=== PATIENT | female | born 1990 | race Two or more races ===

== ENCOUNTER 2018-07-27 00:54 | Emergency (ER) | payer SELFPAY ==
[~2018-07-27] VITALS: Ht 165.1 cm; Wt 77.1 kg
[2018-07-27 01:03] VITALS: BP 112/78
[2018-07-27] MEDS ORDERED: ACETAMINOPHEN 500 MG TAB PO ONE (02:30)
[2018-07-27] MEDS ORDERED: SODIUM CHLORIDE 0.9% 1,000 ML IV ONE (02:30)
== END 2018-07-27 03:29 | disposition home or self-care (01) ==
LOC: ER 00:59
DX: O29.43 Spinal and epidural anesthesia induced headache during pregnancy, third trimester (principal); Z3A.35 35 weeks gestation of pregnancy
CPT/HCPCS: 96360

== ENCOUNTER 2018-09-04 18:37 | Inpatient (IN) | payer MEDICAID ==
[~2018-09-04] VITALS: Ht 165.1 cm; Wt 95.3 kg
[2018-09-04 19:42] LABS: Basophils # (auto) 0 uL; Basophils % (auto) 0.2 % (0.0-2.0); Eosinophils # (auto) 0.1 uL; Eosinophils % (auto) 0.3 % (0.0-7.0); Hematocrit 27.9 % (36.0-46.0); Hemoglobin 9.1 g/dL (12.2-16.2); Lymphocytes # (auto) 1.9 uL; Lymphocytes % (auto) 10.2 % (10.0-50.0); Mean Corpuscular Hgb Conc. 32.6 g/dL (32.0-36.0); Monocytes # (auto) 0.8 uL; Monocytes % (auto) 4.1 % (0.0-12.0); Neutrophils # (auto) 15.5 uL; Neutrophils % (auto) 85.2 % (37.0-80.0); Platelet Count (auto) 330 10^3/uL (140-450); Red Blood Cells 3.03 10^6/uL (4.0-5.20); White Blood Cell 18.2 10^3/uL (4.4-10.8)
[2018-09-04 20:11] LABS: Albumin 3.1 g/dL (3.4-5.0); BUN/Creatinine Ratio 18.6; Calcium 7.7 mg/dL (8.5-10.1); Potassium 3.9 mmol/L (3.5-5.1)
[2018-09-04 20:14] LABS: Bilirubin, Total 0.2 mg/dL (0.2-1.0); Total Protein 6.5 g/dL (6.4-8.2)
[2018-09-04 20:18] LABS: INR 1.06 (0.9-1.15); Partial Thromboplastin Time 19.8 sec (23.78-33.04); Prothrombin Time 11.3 sec (9.27-12.13)
[2018-09-04] MEDS ORDERED: ONDANSETRON HCL 4 MG/2 ML VIAL IV ONE (21:30)
[2018-09-04] MEDS ORDERED: MORPHINE SULFATE 4 MG/ML SYR/VIAL IV ONE (21:30)
[2018-09-04] MEDS ORDERED: LACT. RINGERS/OXYTOCIN 20UNITS 1,000 ML IV ONE ×3 (21:51→22:04)
[2018-09-04] MEDS ORDERED: fentaNYL CITRATE 100 MCG/2 ML VL ONE (22:32)
[2018-09-04] MEDS ORDERED: MIDAZOLAM HCL 1MG/1ML-2 ML VIAL ONE (22:33)
[2018-09-04] MEDS ORDERED: CARBOPROST TROMETHAMINE 250 MCG/1ML VIAL IM ONE (22:42)
[2018-09-04 22:43] VITALS: BP 114/67
[2018-09-04] MEDS ORDERED: METHYLERGONOVINE MALEATE 0.2 MG/ML AMP IM ONE (22:43)
[2018-09-04 22:52] VITALS: BP 114/67
[2018-09-04] MEDS ORDERED: ceFAZolin 1GM/50ML 50 ML IV ONE (23:00)
[2018-09-04] MEDS ORDERED: ONDANSETRON HCL 4 MG/2 ML VIAL ONE (23:39)
[2018-09-04] MEDS ORDERED: LACTATED RINGER'S 1,000 ML IV SCH (23:44)
[2018-09-04] MEDS ORDERED: ONDANSETRON HCL 4 MG/2 ML VIAL IV PRN (23:45)
[2018-09-04] MEDS ORDERED: RHO (D) IMMUNE GLOBULIN 300 MCG INJ IM PRN (23:45)
[2018-09-04] MEDS ORDERED: OXYTOCIN 10UNIT/ML 1ML VIAL ONE (23:59)
[2018-09-05] VITALS (10 sets, daily range): BP systolic 91–103; BP diastolic 46–67
[2018-09-05] MEDS ORDERED: METOCLOPRAMIDE HCL 5MG/ml INJ 2ml VIAL IV ONE
[2018-09-05] MEDS ORDERED: HYDROmorphone HCL 2 MG/ML VL IV PRN
--- NOTE | 2018-09-05 00:45 | NUR ---
Received female pt from PACU, transferred to bed, IV to right AC LR with Pit infusing as ordered and placed on pump, pt is alert and answers questions appropriately. skin is cool to touch color is slightly pale. Lungs clear to ausc bilat. heart tones wnl. abd is soft b/s present fundus firm 2 fingers below the umb. Lochia is moderate to heavy. Incision to lower abd is intact félix intact wallace catheter in place with 100 ml's of clear yellow urine noted. 0100 Isabell pads changed. Lochia is heavy, no clots noted Peter RIVAS charge at bedside isabell pads and chux weighed total output 471 ml's fundus remains two fingers below and firm. 01:20 pt is resting quietly offers no c/o at this time. no distress noted will continue to monitor Addendum: 09/05/18 at 0355 by Codi Madrigal RN Correction incision is intact no félix present
--- NOTE | 2018-09-05 01:45 | NUR ---
Pt is resting quietly offers no c/o at this time, lochia is small no clots noted fundus remain firm at 2 below umb. call maldonado within reach will continue to monitor
[2018-09-05] MEDS ORDERED: LACTATED RINGER'S 1,000 ML IV SCH (01:51)
[2018-09-05] MEDS ORDERED: CARBOPROST TROMETHAMINE 250 MCG/1ML VIAL IM PRN (02:00)
--- NOTE | 2018-09-05 02:12 | NUR ---
Entered room to check on pt's status, fundus and bleeding, Pt noted to be cool to the touch and pale, did not arouse easily called for assistance B/P of 51/31 pulse of 41 O2 sat at 100% on room. O2 place via non breather at 10L/M and Code Assist called by Peter, RN and call placed to Dr. Savage by Peter, RN [id number] Code assist team at bedside. IV fluid LR to right AC and and left AC at bolus rate. Pt remains pale and cool to the touch 0220 B/P at 73/53 heart rate of 97 O2 sat at 100% pt is more responsive color improving 0231 First dose of Hemabate IM as ordered given to LT and teresa pads and chux weighed results of 179 cc's 0235 Pt is talkative and answers question appropriately remains on O2 urine output at 250 ml's B/P 90/63 pulse at 95
[2018-09-05 02:18] LABS: Basophils # (auto) 0 uL; Basophils % (auto) 0.1 % (0.0-2.0); Eosinophils # (auto) 0 uL; Hematocrit 22.7 % (36.0-46.0); Hemoglobin 7.3 g/dL (12.2-16.2); Lymphocytes # (auto) 1.3 uL; Lymphocytes % (auto) 6.9 % (10.0-50.0); Mean Corpuscular Hemoglobin 29.6 pg (28.0-32.0); Mean Corpuscular Hgb Conc. 32.2 g/dL (32.0-36.0); Mean Corpuscular Volume 91.9 fL (80.0-100.0); Monocytes # (auto) 1.3 uL; Monocytes % (auto) 7.2 % (0.0-12.0); Neutrophils # (auto) 15.7 uL; Neutrophils % (auto) 85.8 % (37.0-80.0); Platelet Count (auto) 170 10^3/uL (140-450); Red Blood Cells 2.46 10^6/uL (4.0-5.20); Red Cell Distribution Width 14.6 % (11.8-14.3); White Blood Cell 18.3 10^3/uL (4.4-10.8)
--- NOTE | 2018-09-05 02:20 | NUR ---
Called Dr. Savage to inform of code assist. Orders received to give 2u PRBC, 1 FFP, then 2u PRBs, Protonix 40mg IV, Lasix 20mg IV after second unit PRBCs, Hemabate 250mcg IM x3 now (may give 4th dose if needed), Fibrinogen and PT/PTT labs, CBC 2 hours after 2 units transfused, NS with 20u Pitocin at 150ml/hr. Orders placed and followed.
[2018-09-05] MEDS ORDERED: CARBOPROST TROMETHAMINE 250 MCG/1ML VIAL IM ONE ×3 (02:28→03:05)
--- NOTE | 2018-09-05 02:45 | NUR ---
B/P 95/55 with heart rate 92 with O2 sat at 100%, pat remains pale in color but has improved, is talkative and alert will continue to monitor 03:05 O2 discontinued O2 sats remain at 100% V/S B/P 94/57 heart rate of 96 temp 98.0 orally urine output of 75 ml's 03:07 Third dose of Hemabate to LT as ordered 03:20 B/P of 103/67 heart rate of 89 O2 sat at 100% on room air temp of 98.4 orally. fundus remains 2 below umb. 03:38 First unit of RBC infusing as ordered, explained to pt signs and symptoms of possible reaction to transfusion pt verbalizes understanding 03:50 Chux and teresa pads changed and weighed results of 122 ml's and teresa care given fundus remains 2 below the umb. Lochia is decreasing. Vital signs; B/P 96/71 rate of 101 temp of 98.2 04:05 No reaction to transfusion noted pt resting quietly will continue to monitor
[2018-09-05] MEDS ORDERED: LACT. RINGERS/OXYTOCIN 20UNITS 0 ML IV ONE (02:57)
[2018-09-05] MEDS ORDERED: PANTOPRAZOLE 40 MG/10 ML VIAL IV ONE (03:00)
[2018-09-05 03:18] LABS: INR 1.5 (0.9-1.15); Partial Thromboplastin Time 24.6 sec (23.78-33.04); Prothrombin Time 15.7 sec (9.27-12.13)
[2018-09-05] MEDS ORDERED: OXYTOCIN 10UNIT/ML 1ML VIAL ONE (03:18)
[2018-09-05] MEDS: OXYTOCIN 20 UNT in SODIUM CHLORIDE 0.9% 1,000 ML IV SCH ×3 (03:30→17:04)
[2018-09-05 04:02] LABS: Fibrinogen 76.6 mg/dL (177-375)
--- NOTE | 2018-09-05 04:40 | NUR ---
First unit of RBC's infused no reaction noted. Pt resting quietly will continue to monitor 04:59 Second unit of RBC'S infusing as ordered, educated pt on signs and symptoms of possible reaction pt verbalizes understanding.
--- NOTE | 2018-09-05 05:15 | NUR ---
Pt resting quietly no reaction to transfusion noted will continue to monitor
[2018-09-05] MEDS ORDERED: FUROSEMIDE 20 MG/2 ML VIAL IV ONE (06:00)
--- NOTE | 2018-09-05 06:29 | NUR ---
Dr. Savage calls. Updated SBAR given including pts status, EBL trend, 2u PRBC's transfused. Lasix held due to low BP. No new orders received.
--- NOTE | 2018-09-05 06:30 | NUR ---
INITIAL CONTACT PT ALERT AND ORIENTED, RESTING IN BED, EVEN RISE AND FALL OF RESPIRATIONS, MONITORS IN PLACE, SECOND UNIT OF BLOOD COMPLETED, PT TOLERATED WELL. DENIES PAIN, FUNDUS 3 BELOW UMBILICUS AND FIRM, SCANT BLEEDING. BARTLETT CATH CLEAR YELLOW URINE, PT DENIES ANY PAIN, BROTHER IN LAW AT BEDSIDE. CONTINUE CARE.
--- NOTE | 2018-09-05 06:30 | NUR ---
Report given to ROB Sparks at bedside
--- NOTE | 2018-09-05 07:58 | NUR ---
FFP STARTED, MONITORS IN PLACE, CONTINUE CARE
--- NOTE | 2018-09-05 08:14 | NUR ---
FFP TOLERATING WELL, NO DISTRESS NOTED, BROTHER IN LAW AT BEDSIDE, MONITORS IN PLACE, CONTINUE CARE.
[2018-09-05] MEDS ORDERED: cefTRIAXone 1GM/50ML D5W 50 ML IV SCH (09:00)
[2018-09-05] MEDS ORDERED: DIPHENOXYLATE W/ATROPINE 2.5 MG TAB PO PRN (09:00)
--- NOTE | 2018-09-05 09:12 | NUR ---
ACTIVITY PT RESTING IN BED, WATCHING TV, MONITORS IN PLACE, FFP RUNNING, NO DISTRESS NOTED, CONTINUE CARE.
--- NOTE | 2018-09-05 09:16 | NUR ---
ORDERS RECEIVED TO ADVANCE DIET
--- NOTE | 2018-09-05 09:30 | NUR ---
URINE OBTAINED AND SENT TO LAB
[2018-09-05 09:36] LABS: Basophils # (auto) 0 uL; Basophils % (auto) 0.1 % (0.0-2.0); Eosinophils # (auto) 0 uL; Eosinophils % (auto) 0.1 % (0.0-7.0); Hemoglobin 8.2 g/dL (12.2-16.2); Mean Corpuscular Volume 88.8 fL (80.0-100.0)
[2018-09-05 09:39] LABS: Hematocrit 24.4 % (36.0-46.0); Lymphocytes # (auto) 1.7 uL; Lymphocytes % (auto) 13.5 % (10.0-50.0); Mean Corpuscular Hemoglobin 29.8 pg (28.0-32.0); Mean Corpuscular Hgb Conc. 33.6 g/dL (32.0-36.0); Monocytes # (auto) 1.3 uL; Monocytes % (auto) 9.9 % (0.0-12.0); Neutrophils # (auto) 9.8 uL; Neutrophils % (auto) 76.4 % (37.0-80.0); Red Blood Cells 2.75 10^6/uL (4.0-5.20); Red Cell Distribution Width 14.8 % (11.8-14.3); White Blood Cell 12.8 10^3/uL (4.4-10.8)
[2018-09-05 09:43] LABS: Platelet Count (auto) 128 10^3/uL (140-450)
[2018-09-05 09:47] LABS: Urine Bacteria NONE SEEN /hpf (None Seen); Urine Blood TRACE /uL (Negative); Urine Mucus FEW (None Seen); Urine Specific Gravity 1.015 (1.001-1.035); Urine WBC 1 /hpf (0 - 5)
--- NOTE | 2018-09-05 10:00 | NUR ---
PROVIDER UPDATE GIVEN TO DR STRAUSS CBC RESULTS AND URINE ORDERS RECEIVED FOR REGULAR DIET, IRON PO TID, REMOVE BARTLETT AND TO GET PATIENT UP TO WALK.
[2018-09-05] MEDS: ACETAMINOPHEN 325 MG TAB PO PRN ×2 (10:35→15:16)
--- NOTE | 2018-09-05 11:20 | NUR ---
BREAST PUMP PT PROVIDED BREAST PUMP
--- NOTE | 2018-09-05 12:00 | NUR ---
FAMILY PT MOTHER AND BOTHER IN LAW AT BEDSIDE
--- NOTE | 2018-09-05 12:40 | NUR ---
BARTLETT CATH REMOVED
[2018-09-05] MEDS ORDERED: GENTAMICIN SULFATE 80 MG in D5W 5% 100 ML IV ONE (14:45)
[2018-09-05] MEDS ORDERED: GENTAMICIN PER PHARMACY 0 ML IV SCH (14:45)
--- NOTE | 2018-09-05 14:45 | NUR ---
PROVIDER DR STRAUSS CALLED UPDATED ON VITAL SIGNS AND TEMP, LABS, ETC. ORDERS RECEIVED AND TO BE PLACED
--- NOTE | 2018-09-05 15:07 | NUR ---
AMBULATION PT AMBULATED TO RESTROOM WITH RN X2 ASSISTANCE WITH MOTHER AT BEDSIDE, ABLE TO VOID 600ML ON HER OWN.
--- NOTE | 2018-09-05 15:09 | NUR ---
ACTIVITY PT REQUESTING TO AMBULATE IN ROOM, MOTHER AT BEDSIDE, FALL PRECAUTIONS AND EDUCATION PROVIDED TO PT AND MOTHER, VERBALIZED UNDERSTANDING. CONTINUE CARE.
[2018-09-05] MEDS: FERROUS SULFATE 325 MG TAB PO SCH ×2 (15:15→22:45)
[2018-09-05] MEDS ORDERED: PIPERACILLIN-TAZOB 3.375GM 100 ML IV ONE (15:19)
[2018-09-05] MEDS: PIPERACILLIN-TAZOB 3.375GM 100 ML IV SCH ×2 (15:33→21:35)
--- NOTE | 2018-09-05 17:06 | NUR ---
TEMPERATURE COOLING MEASURES IMPLEMENTED: MOTHER AND PATIENT EDUCATED, VERBALIZED UNDERSTANDING
[2018-09-05] MEDS ORDERED: GENTAMICIN SULFATE 80 MG in D5W 5% 100 ML IV SCH (18:00)
[2018-09-06 03:02] VITALS: BP 98/68
[2018-09-06] MEDS: PIPERACILLIN-TAZOB 3.375GM 100 ML IV SCH ×2 (03:30→09:00)
[2018-09-06] MEDS: ACETAMINOPHEN 325 MG TAB PO PRN ×2 (03:44→08:30)
--- NOTE | 2018-09-06 06:15 | NUR ---
REPORT GIVEN TO ROB DESAI
[2018-09-06] MEDS: FERROUS SULFATE 325 MG TAB PO SCH (06:28)
[2018-09-06 06:49] VITALS: BP 107/69
[2018-09-06] MEDS ORDERED: AMOX500T86 PO (08:07)
[2018-09-06] MEDS ORDERED: FERR-7 PO (08:07)
--- NOTE | 2018-09-06 08:23 | NUR ---
Prescriptions called into pt pharmacy ad in [place]
--- NOTE | 2018-09-06 08:26 | NUR ---
IV removal BOTH PT IV'S DC'd with clean sterile technique, catheter fully intact. Pressure dressing applied to site. Patient tolerated well.
--- NOTE | 2018-09-06 08:28 | NUR ---
Discharge: Discharge instructions given as ordered. Pt encouraged to follow up with [facility] as instructed. All questions and concerns addressed. Patient verbalized understanding. d/c education translated by Kev RIVAS. Patient encouraged to prepare to depart unit.
--- NOTE | 2018-09-06 10:05 | NUR ---
Discharge: Patient taken to vehicle via ambulating, accompanied by staff and family member. No distress noted at time of departure, no adverse changes in status since initial assessment.
== END 2018-09-06 10:05 | disposition home or self-care (01) | DRG 541 ==
LOC: ER 18:37 → OR 1 22:15 → LDRP 09-05 00:45
PROVIDERS: ADMIT Obstetrics & Gynecology; ATTEND Obstetrics & Gynecology
PROC: 30233K1 Transfusion of Nonautologous Frozen Plasma into Peripheral Vein, Percutaneous Approach (ICD-10-PCS; 2018-09-04)
PROC: 30233N1 Transfusion of Nonautologous Red Blood Cells into Peripheral Vein, Percutaneous Approach (ICD-10-PCS; 2018-09-04)
PROC: 0U997ZZ Drainage of Uterus, Via Natural or Artificial Opening (ICD-10-PCS; 2018-09-04)
PROC: 10D17ZZ Extraction of Products of Conception, Retained, Via Natural or Artificial Opening (ICD-10-PCS; principal; 2018-09-04 23:03)
DX: O72.2 Delayed and secondary postpartum hemorrhage (principal); Z37.0 Single live birth; D62 Acute posthemorrhagic anemia; O90.81 Anemia of the puerperium; Z88.1 Allergy status to other antibiotic agents
CPT/HCPCS: 36415; 36430; 51702; 76856; 80053; 81001; 84702; 85025; 85384; 85610; 85730; 86850; 86900; 86901; 86920; 94761; 96372; 96374; 96375; A6257; C9113; G0378; J0690; J0696; J2250; J2405; J2543; J2590; J7060